=== PATIENT | male | born 1985 ===

== ENCOUNTER → 2017-02-21 | Outpatient (CLI) | payer OTHER ==
--- NOTE | 2017-02-21 21:16 | DIAGNOSTIC IMAGING REPORT ---
MRI OF THE LEFT KNEE WITHOUT CONTRAST CLINICAL HISTORY: Persistent left knee pain and swelling. COMPARISON STUDY: None TECHNIQUE: Utilizing a 1.5 Lulu magnet and dedicated coil, multiplanar, multiecho imaging of the left knee was performed without intravenous or intraarticular contrast. FINDINGS: Alignment of left knee is anatomic. Extensor mechanism is intact. There is no joint effusion. No marrow replacement is present. The anterior cruciate ligament is normal. The posterior cruciate ligament is somewhat redundant and thin but intact. The medial collateral ligament and lateral collateral ligament complex are intact. There is no lateral meniscal tear. There is an oblique tear of the posterior horn of the medial meniscus. There is no significant chondral abnormality. No mass or fluid collection is noted adjacent to the left knee. IMPRESSION: 1. Oblique tear of the posterior horn of the medial meniscus. 2. Somewhat diminutive and redundant posterior cruciate ligament. However, the PCL is intact. Intact ACL. Electronically signed by: Castillo Purvis M.D. 02/21/2017 9:14 PM Dictated Date/Time: 02/21/2017 8:16 PM
== END | disposition home or self-care (01) ==
LOC: C.MRI 17:48
PROVIDERS: ATTEND Orthopaedic Surgery Sports Medicine
DX: S83.242A Other tear of medial meniscus, current injury, left knee, initial encounter (principal); X58.XXXA Exposure to other specified factors, initial encounter

== ENCOUNTER → 2017-04-01 | Day surgery (SDC) | payer OTHER ==
[2017-03-13 13:37] VITALS: Ht 175.3 cm; Wt 95.0 kg
[~2017-04-01] VITALS: Ht 175.3 cm; Wt 95.0 kg
[~2017-04-01] MED LIST: ATROPINE SULFATE 0.1 MG/ML 5ML SYR IV PRN; BUPIVACAINE/EPINEPHRINE 0.5% MPF 1:200,000 30 ML VIAL ONE; CEFAZOLIN 2000 MG/60 ML D5W IV SCH; DEXAMETHASONE SOD INJ 4 MG/ML VIAL ONE; EpHEDrine SULFATE INJ 50 MG/ML AMP IV PRN; EpINEphrine INJ 1MG/ML AMP 1 MG/ML AMP ONE; FENTANYL CITRATE INJ 50 MCG/1 ML 2 ML VIAL ONE; FLUMAZENIL 0.1 MG/1 ML 10 ML VIAL IV PRN; GLYCOPYRROLATE INJ 0.2 MG/ML VIAL ONE; HYDROmorphone INJ 1 MG/ML SYR IV PRN; LABETALOL HCL IV 5 MG/ML 20ML IV PRN; LACTATED RINGER'S 1000ML 1,000 ML IV SCH; LIDOCAINE HCL 1% 20 ML VIAL ONE; LIDOCAINE HCL 2% 2 ML VIAL (20MG/ML) ONE; METOCLOPRAMIDE HCL INJ 5 MG/ML 2 ML VIAL IV PRN; MIDAZOLAM HCL 1 MG/ML 2ML VIAL ONE; MoRPHine SULFATE 4 MG/ML 1 ML CARP\\VIAL IV PRN; NALOXONE HCL 0.4 MG/1 ML VIAL/CARP IV PRN; ONDANSETRON INJ 2 MG/ML 2 ML VIAL IV PRN; ONDANSETRON INJ 2 MG/ML 2 ML VIAL ONE; OXYCODONE/ACETAMINOPHEN 5-325 TAB PO PRN; PROMETHAZINE HCL INJ 12.5 MG in SODIUM CHLORIDE 0.9% 50ML 50 ML IV PRN; PROPOFOL IV EMULSION 10 MG/ML 20 ML VIAL IV ONE; SODIUM CHLORIDE 0.9% 1000ML 1,000 ML IV SCH
--- NOTE | 2017-04-01 11:43 | History & Physical Bridge - [place] ---
H&P Re-Evaluation Bridge Note: I have examined the patient, reviewed the History & Physical and in the interval since the performance of the History & Physical I have noted the following changes of clinical significance: No changes noted
--- NOTE | 2017-04-01 12:55 | [facility] Operative Report ---
Operative Report Operative Date April 01, 2017. Pre-Operative Diagnosis Left Knee Meidal Meniscus Tear, Medial Plicae Post-Operative Diagnosis same as preop diagnosis Procedure(s) Performed Left Knee Arthroscopy, Exam Under Anesthesia, Lateral Meniscus Repair Surgeon Dr. Belcher Silk Opener Surgeon(s) GROVER Ugarte Estimated Blood Loss 2ml Findings same Specimens none per surgeon Drains none Anesthesia general Complication(s) None Disposition Recovery Room / PACU Implants see Dr. Belcher's op note for detail Indications sustained injury to left knee, MRI obtained, surgery recommended, consents signed Description of Procedure taken to the OR, prepped and draped, I was present the entire case, please see Dr. Belcher's op note for further detail I attest to the content of the Intraoperative Record and any orders documented therein. Any exceptions are noted below.
--- NOTE | 2017-04-01 12:59 | Discharge Instructions-SurgCtr ---
Discharge Instructions Date of Service April 01, 2017. Visit Reason for Visit: Left Knee Medial Meniscus Tear, Medial Plicae Discharge Discharge Diagnosis / Problem: S/P Left knee arthroscopy, meniscus repair, exam under anesthesia Discharge Goals Goal(s): Decrease discomfort, Improve function, Increase independence Medications Restart Stopped Medication(s): Begin taking Aspirin 325mg tabs, 1 tab every AM & PM x 2 weeks after surgery to prevent blood clots in your lower extremities. Activity Recommendations Activity Limitations: as noted below Lifting Limitations: until after follow-up appointment Shower/Bathe: keep incision dry Driving or Machine Use: when cleared by Dr. Belcher Weightbearing Status: Left non-weightbearing Anesthesia . Post Anesthesia Instructions: If you have had General Anesthesia or IV Sedation: * Do not drive today. * Resume driving when surgeon permits. * Do not make important decisions or sign legal documents today. * Call surgeon for: 1. Temperature elevations greater than 101 degrees F. 2. Uncontrollable pain. 3. Excessive bleeding. 4. Persistent nausea and vomiting. 5. Medication intolerance (nausea, vomiting or rash). * For nausea and vomiting use only clear liquids such as: tea, soda, bouillon until nausea subsides, then gradually increase diet as tolerated. * If you have any concerns or questions, call your surgeon's office. If physician is unavailable and it is an emergency, call 911 or go to the nearest emergency room. . Instructions / Follow-Up Instructions / Follow-Up DIET: * Resume previous diet. MEDICATIONS: * Please take your prescriptions as instructed at your pre-op appointment and/ or see medication discharge instructions listed above. * If concerns develop, call your physician's office at . SPECIAL CARE INSTRUCTIONS: * Ice/Elevate as instructed. * Keep dressing clean, dry, intact. * Your surgical extremity may be discolored due to prepping agents used on the skin. A bluish-green tint is a normal variant and should not cause alarm. Call your doctor at [phone] if: * Temperature above 101 degrees * Pain not relieved by pain medicine ordered * There is increased drainage or redness from any incision * You have any unanswered questions, problems or concerns. FOLLOW UP VISIT: * If not already scheduled, please call the office at to schedule a follow-up appointment. Diet Recommendations Home Diet: resume previous diet Procedures Procedures Performed: Left Knee Arthroscopy, Exam Under Anesthesia, Lateral Meniscus Repair Pending Studies Studies pending at discharge: no Medical Emergencies . Who to Call and When: Medical Emergencies: If at any time you feel your situation is an emergency, please call 911 immediately. . Non-Emergent Contact Non-Emergency issues call your: Primary Care Provider . . "Provider Documentation" section prepared by Efe Valenzuela. . [place] Drug Monitoring Program Search Results: no issues identified
[2017-04-01 13:32] VITALS: TEMP 36.3
--- NOTE | 2017-04-01 14:20 | Anesthesia Progress Nt - [facility] ---
Anesthesia Post Op Note Date & Time April 01, 2017 at 14:19 Vital Signs Pain Intensity: 5 Vital Signs Past 12 Hours Date Time Temp Pulse Resp B/P Pulse Ox O2 Delivery O2 Flow Rate FiO2 04/01/17 13:32 36.3 83 16 144/89 99 Room Air 04/01/17 13:24 67 11 97 04/01/17 13:24 68 11 04/01/17 13:22 149/94 04/01/17 13:20 36.4 78 12 149/94 98 Room Air 04/01/17 13:19 72 11 98 04/01/17 13:19 69 11 04/01/17 13:14 82 16 04/01/17 13:14 90 16 98 04/01/17 13:11 151/97 04/01/17 13:09 93 13 04/01/17 13:09 98 13 100 04/01/17 13:06 158/94 04/01/17 13:04 69 14 04/01/17 13:04 69 14 100 04/01/17 13:01 150/83 04/01/17 12:59 66 11 100 04/01/17 12:59 66 11 04/01/17 12:56 136/77 04/01/17 12:55 145/74 04/01/17 12:54 36.5 64 12 145/74 97 Mask 6 04/01/17 09:43 36.3 68 16 145/84 98 Room Air Notes Mental Status: alert / awake / arousable, participated in evaluation Pt Amnestic to Procedure: Yes Nausea / Vomiting: adequately controlled Pain: adequately controlled Airway Patency, RR, SpO2: stable & adequate BP & HR: stable & adequate Hydration State: stable & adequate Anesthetic Complications: no major complications apparent
[2017-04-01 14:26] VITALS: BP 144/86; PULSE 60; O2SAT 97
--- NOTE | 2017-04-01 14:34 | [facility] Operative Report ---
Operative Report Operative Date April 01, 2017. Pre-Operative Diagnosis Left Knee Meidal Meniscus Tear, Medial Plicae Post-Operative Diagnosis same as preop diagnosis Procedure(s) Performed Left Knee Arthroscopy, Exam Under Anesthesia, Lateral Meniscus Repair Surgeon Dr. Belcher Sex Therapist Surgeon(s) GROVER Ugarte Estimated Blood Loss 2ml Findings The left knee was examined under anesthesia. Range of motion was 0-130. Ligamentous examination exhibited: stable Chantell, posterior drawer, varus and valgus stress at 0 & 30 degrees. ARTHROSCOPIC FINDINGS: 1) PATELLOFEMORAL JOINT: The articular cartilage of the Patella and Trochlea were intact. 2) GUTTERS: No loose bodies. 3) MEDIAL COMPARTMENT: The articular cartilage of the femur and Tibia was intact. The medial meniscus was intact . 4) ACL/PCL: They were both visualized and probed to be intact. 5) LATERAL COMPARTMENT: The lateral compartment was then entered in a figure-of- four position. The femoral and tibial articular cartilage was normal. The lateral meniscus had a near full-thickness approximately 12 mm in length longitudinal tear of the posterior aspect, with a good peripheral rim, in the red-red zone. Fluids (cc crystalloids) 1000 Specimens none per surgeon Drains n/a Anesthesia GEN Complication(s) None Disposition Recovery Room / PACU (stable) Implants n/a Indications This is a 32-year-old male who has clinical and MRI findings consistent with lateral meniscus tear. I recommended that a left knee arthroscopy be performed with meniscus repair vs debridement, possible chondroplasty versus microfracture. The patient understands the risks of surgery, which include but not limited to: bleeding, infection, re-operation, damage to nerves and arteries , continued knee pain, progression of OA, DVT, and a 2-5% risk of becoming worse after surgery. The patient understands all of these instructions and explanations, all of his questions have been satisfactorily addressed and the patient has elected to proceed. Informed consent was signed. Description of Procedure The patient was taken to the Operating Room and placed in the supine position after general anesthetic was administered. My initials and a multidisciplinary time-out were used to identify the left leg as the correct operative limb. Prior to the incision, 2 grams of intravenous Ancef was given. The left knee was then injected with 20cc of a 50:50 mix of 1% Lidocaine plain and 0.5% Bupivacaine with epinephrine in a sterile fashion using the superolateral portal. The left leg was then prepped and draped in a standard sterile fashion. The anterolateral and anteromedial portals were injected with the 50:50 mixture noted above, for a total of 2 cc, in the standard fashion. An anterolateral arthroscopic portal was established with an 11-blade. Next, the arthroscope was introduced into the knee. A diagnostic arthroscopy commenced anteromedial portal was established under direct visualization using a spinal needle followed by an 11 blade in the standard fashion. The above findings were observed during the diagnostic arthroscopy. The anterior fat pad was debrided as they were encounter with mechanical shaver and [place]. The medial plicae was non-engaging. The lateral meniscus tear was evaluated and found to be reparable. There was some fraying at the apex which was debrided with mechanical shaver. The capsule and edges of the meniscus tear were prepared with mechanical shaver and Mace rasp. Then with switching portals viewing from them anteromedial portal and working from the anterolateral portal, a meniscal cinch was placed with an all inside technique. The meniscus was probed and found to be stable. There was no undue tension on the meniscus with full knee range of motion. The knee was copiously irrigated. The arthroscopic instruments were then removed. The portals were closed with 3-0 Prolene in a standard fashion. The wound was dressed with Xeroform gauze, sterile gauze, ABDs, sterile Webril, and a foot to thigh Cornell bandage. A T-ROM knee brace was placed locked in extension. The patient was then transferred to the Recovery Room in stable condition. The sponge and needle counts were correct. Post-op Instructions: The patient will be NWB for 2 weeks and then switch to WBAT with the brace locked in extension for 2 weeks, followed by having the brace blocked at 90 while weightbearing. The patient may remove the operative dressing on Post-Op Day #2 and apply Band-Aids to the wounds. The patient may shower in 72 hours and is to wear the SINAI for 2 weeks on the operative limb. The patient is to use the pain medicine as needed and take the ASA for 2 weeks. The patient was also given a handout for home quad strengthening and seated self-assisted ROM exercises, which they may begin tomorrow. The patient was given a prescription for PT and is scheduled for an appointment later this week. The patient is to follow up with me in 10-15 days. I attest to the content of the Intraoperative Record and any orders documented therein. Any exceptions are noted below.
== END | disposition home or self-care (01) ==
LOC: X.SURG 09:26
PROVIDERS: ATTEND Orthopaedic Surgery Sports Medicine
DX: M23.222 Derangement of posterior horn of medial meniscus due to old tear or injury, left knee (principal); M67.52 Plica syndrome, left knee; E66.9 Obesity, unspecified; Z87.891 Personal history of nicotine dependence